=== PATIENT | female | born 1960 | race African-American/Black ===

== ENCOUNTER 2020-11-29 01:30 | Emergency (ER) | payer BC, OTHER ==
[~2020-11-29] VITALS: Ht 157.5 cm; Wt 103.4 kg
--- NOTE | ~2020-11-29 | EMS ---
[address] [address] EMS Patient Care Report Name: MAG RICO Room #: DEP [facility]#: [id number] Admission: 11/29/20 Attend Phys: Discharge: 11/29/20 Date of : 60 Report #: [id number] THIS REPORT FOR: //name// Report Transmitted: 11/30/2020 15:11 EMS Care Summary [place], [place] Incident [id number] @ 11/29/2020 01:04 Incident Location [address] [place] [address] Patient MAG RICO Female, 60 Years 1960 Patient Address [address] [place], [place] [id number] Patient History Hypertension (HTN), Patient Allergies Penicillin allergy, Patient Medications Rosuvastatin, Lisinopril, Chief Complaint Low back/flank pain Disposition Transported No Lights/Early Dispatch Reason Sick Person Transported To [facility] Narrative Arrived on scene to be greeted by our patient walking out the front door of her home. Patient stated that she had developed low left back pain radiating into [address] [address] EMS Patient Care Report Name: MAG RICO Room #: DEP [facility]#: [id number] Admission: 11/29/20 Attend Phys: Discharge: 11/29/20 Date of : 60 Report #: [id number] her flank approximately 3 days prior. The pain had gotten progressively worse over those 3 days. Patient denied any history of abdominal problems, renal problems, n/v, diarrhea, painful urination or chest pain. Patient stated she had been constipated since the pain started. Patient assisted onto cot at her front door and moved to the ambulance. Patient's vital signs obtained, bilateral blood pressures obtained with no major change in pressures. Patient transported and transferred to receiving facility without change in patient condition. Initial Vitals @01:17P: 83,R: 18,BP: 160/95,Pain: 8/10,GCS: 15,CO: 8,SpO2: 100,Revised Trauma: 12, @01:19P: 79,R: 18,BP: 159/84,Pain: 8/10,GCS: 15,CO: 5,SpO2: 99,Revised Trauma: 12, Assessments @:13MENTAL:Place Oriented,Person Oriented,Time Oriented,Event Oriented,SKIN:HEENT:Head/Face: No Abnormalities,Neck/Airway: No Abnormalities,LUNG SOUNDS:ABDOMEN:PELVIS//GI:No Abnormalities,EXTREMITIES:Left Arm: No Abnormalities,Right Arm: No Abnormalities,Left Leg: No Abnormalities,Right Leg: No Abnormalities,PULSE:NEURO:No Abnormalities, Impression Back Pain Procedures @:13ALS AssessmentResponse: UnchangedSucceeded Timeline 01:03,Call Received 01:03,Dispatch Notified 01:04,Dispatched 01:06,En Route 01:11,On Scene 01:13,At Patient 01:13,ALS Assessment,Response: UnchangedSucceeded, 01:17,BP: 160/95 M,PULSE: 83,RR: 18 R,SPO2: 100 Ox,ETCO2: ,BG: ,PAIN: 8,GCS: 15, 01:19,BP: 159/84 M,PULSE: 79,RR: 18 R,SPO2: 99 Ox,ETCO2: ,BG: ,PAIN: 8,GCS: 15, 01:22,Depart Scene 01:36,At Destination 01:38,Call Closed Disclaimer v1.1 Copyright 2020 [employer] [facility] [address] [place] [address] EMS Patient Care Report Name: MAG RICO Room #: [facility] Harini#: [id number] Admission: 11/29/20 Attend Phys: Discharge: 11/29/20 Date of : 60 Report #: [id number] This EMS Care Summary contains data elements from the applicable legal record (which may be displayed differently). It is designed to provide pertinent information for the following purposes: continuity of care, clinical quality, and state data reporting. The complete legal record is available to ED staff and administrators of the receiving hospital in [employer]'s Patient Tracker. All data is provided "as is."
[~2020-11-29 01:30] MED LIST: ALAVERT10 MG PO; ALBUTEROL2.5 MG/32 IH; CLARITIN10 MG PO; CLONIDINE HCL0.1 MG PO; DUONEB 2.5-0.5 M3 ML INH; ESTRACE2 MG PO; ESTROGEN-METHY1 EAC3 PO; JARDIANCE25 MG PO; LISINOPRIL10 MG PO; LOVASTATIN 20 M20 MG PO; MEDROLDOSEPACK PO; METFORMIN HCL500 MG PO; MUCINEX600 MG PO; PREDNISONE 20 M20 M1 PO; PROGESTERONE100 MG PO; PROVENTIL INH; SUDAFED PE10 MG PO; VITAMIN D2000 UNIT PO; WELLBUTRIN SR150 MG PO; ZPAK PO
[2020-11-29] MEDS ORDERED: LISINOPRIL20 MG PO (01:40)
[2020-11-29] MEDS ORDERED: CLARITIN10 MG PO (01:40)
[2020-11-29] MEDS ORDERED: EZALLOR SPRINKL20 MG PO (01:41)
[2020-11-29 02:12] LABS: ABSOLUTE NEUTROPHILS 4.8 thou/uL (1.4-8.2); BASOPHILS 0.8 % (0.0-2.0); EOSINOPHILS 3.1 % (0.0-3.0); HEMATOCRIT 42.1 % (37.0-47.0); HEMOGLOBIN 14.1 gm/dL (12.0-15.0); LYMPHOCYTES 41.9 % (24.0-44.0); MCH 28.9 pg (26.0-34.0); MCHC 33.5 g/dL (28.0-37.0); MCV 86.2 fL (80.0-100.0); MONOCYTES 6.9 % (1.0-8.0); PLATELET COUNT 350 thou/uL (150-400); POLYS 47.3 % (36.0-66.0); RBC 4.88 mil/uL (4.20-5.00); RDW 14.5 % (10.5-14.5); URINE BILIRUBIN NEGATIVE (Negative); URINE BLOOD 2+ (Negative); URINE CLARITY CLEAR; URINE COLOR YELLOW; URINE GLUCOSE-RANDOM* NEGATIVE (Negative); URINE KETONES NEGATIVE (Negative); URINE LEUKOCYTES-REFLEX NEGATIVE (Negative); URINE NITRITE-REFLEX NEGATIVE (Negative); URINE PROTEIN (DIPSTICK) NEGATIVE (Negative); URINE SPECIFIC GRAVITY 1.015 (1.005-1.035); URINE UROBILINOGEN 0.2 E.U./dl (0.2-1.0); WBC 10.1 thou/uL (4.0-11.0)
[2020-11-29 02:20] LABS: CALCIUM 9.1 mg/dL (8.5-10.1); CREATININE 1.1 mg/dL (0.6-1.0)
[2020-11-29 02:21] LABS: POTASSIUM 3.9 mmol/L (3.5-5.1)
[2020-11-29 02:24] LABS: BACTERIA-REFLEX 1-9 Few /HPF (None Seen); CASTS None Seen /LPF (None Seen); CRYSTALS None Seen /LPF (None Seen); MUCUS None Seen strn/LPF (None Seen); SQUAMOUS 0-3 Few /LPF (0-3); URINE RBC 1-2 Rare /HPF (NONE SEEN); URINE WBC-REFLEX None Seen /HPF (0-5)
[2020-11-29] MEDS ORDERED: VALTREX1000 MG PO (04:42)
[2020-11-29] MEDS ORDERED: PERCOCET 5-3251 EACH PO (04:42)
[2020-11-29 05:14] VITALS: BP 167/76
== END 2020-11-29 05:15 | disposition home or self-care (01) ==
LOC: ER 01:30
PROVIDERS: Student in an Organized Health Care Education/Training Program
DX: M54.5 Low back pain (principal); R10.32 Left lower quadrant pain; Z90.711 Acquired absence of uterus with remaining cervical stump; Z90.721 Acquired absence of ovaries, unilateral; Z98.890 Other specified postprocedural states; Z79.899 Other long term (current) drug therapy; Z88.5 Allergy status to narcotic agent; Z88.0 Allergy status to penicillin; Z87.891 Personal history of nicotine dependence